=== PATIENT | male | born 1950 | race Caucasian/White ===

== ENCOUNTER 2018-08-31 10:01 | Observation (INO) | payer MEDICARE, OTHER ==
[~2018-08-31] VITALS: Ht 190.5 cm; Wt 102.8 kg
[~2018-08-31 10:01] MED LIST: ALPR.5 PO; AMAN100; AMOCLA875 PO; Azor 5-40 MG T1 EACH; Baclofen10 MG PO; CHOL10002 PO; COL-RITE250 MG PO; ENTA200 PO; LEVCAR2510 PO; LEVCAR2525 PO; OLME20 PO; Ropinirole HCl2 MG PO; SILD25T PO; TADA10TA; ZOLP6.25 PO
[2018-08-31 11:01] LABS: Source, Urine Clean Catch
[2018-08-31] MEDS ORDERED: TAMS.4ER PO (11:04)
[2018-08-31] MEDS ORDERED: LISI5 PO (11:05)
[2018-08-31] MEDS ORDERED: ELIQUIS5 MG PO (11:05)
[2018-08-31] MEDS ORDERED: Bisoprolol Fumar5 MG PO (11:05)
[2018-08-31 11:06] LABS: BASOPHILS ABSOLUTE AUTO 0.06 K/mm3 (0.00-0.23); BASOPHILS PERCENT AUTO 1 % (0-2); EOSINOPHILS ABSOLUTE AUTO 0.13 K/mm3 (0.00-0.68); EOSINOPHILS PERCENT AUTO 2 % (0-6); Hematocrit 49.9 % (37.0-53.0); Hemoglobin 16.5 g/dL (13.5-17.5); IMMATURE GRAN ABSOLUTE AUTO 0.04 K/mm3 (0.00-0.10); IMMATURE GRAN PERCENT AUTO 1 % (0-1); LYMPHOCYTES ABSOLUTE AUTO 1.68 K/mm3 (0.84-5.20); LYMPHOCYTES PERCENT AUTO 19 % (21-46); MONOCYTES ABSOLUTE AUTO 0.67 K/mm3 (0.16-1.47); MONOCYTES PERCENT AUTO 8 % (4-13); Mean Corpuscular HGB 30.4 pg (26.0-34.0); Mean Corpuscular HGB Conc 33.1 g/dL (31.5-36.5); Mean Corpuscular Volume 92 fL (80-100); Mean Platelet Volume 9.4 fL (9.1-12.4); NEUTROPHILS ABSOLUTE AUTO 6.09 K/mm3 (1.96-9.15); NEUTROPHILS PERCENT AUTO 70 % (41-73); Platelet Count 270 K/mm3 (150-400); RDW Coefficient Variation 13.1 % (11.7-14.2); RDW Standard Deviation 44.5 fL (35.1-46.3); Red Blood Cell Count 5.42 M/mm3 (4.30-5.90); White Blood Cell Count 8.67 K/mm3 (4.00-11.30)
[2018-08-31 11:08] LABS: Bilirubin, Urine Neg (Neg); Blood, Urine 1+ (Neg); Glucose Qualitative, Urine Neg (Neg); Ketones, Urine Neg (Neg); Leukocyte Esterase, Urine Neg (Neg); Nitrite, Urine Neg (Neg); Protein, Urine Neg (Neg); Specific Gravity, Urine 1.015 (1.003-1.022); Urobilinogen, Urine NORM (Normal)
[2018-08-31 11:22] LABS: Alanine Aminotransfer (ALT/SGP 12 U/L (12-78); Albumin/Globulin Ratio 1.2 (0.8-1.8); Alk Phos 124 U/L (50-136); Anion Gap 9 mmol/L (6-16); Aspartate Aminotrans (AST/SGOT 25 U/L (12-37); Bilirubin, Total 0.8 mg/dL (0.1-1.0); Blood Urea Nitrogen 24 mg/dL (8-24); Bun/Creatinine Ratio 30.5 (12.0-20.0); CO2, Blood 26 mmol/L (21-32); Calcium, Blood 8.8 mg/dL (8.5-10.1); Chloride, Blood 99 mmol/L (98-108); Creatinine, Blood 0.79 mg/dL (0.60-1.20); Globulin, Blood 3.4 g/dL (2.2-4.0); Glomerular Filtration Rate >60 (60-); Glucose, Blood 91 mg/dL (70-99); Sodium, Blood 134 mmol/L (136-145); Total Protein, Blood 7.4 g/dL (6.4-8.2)
[2018-08-31 11:57] LABS: Appearance, Urine Clear (Clear); Bacteria Not Seen /hpf; Color, Urine Yellow (P-Yellow); Red Blood Cells, Urine 0-2 /hpf (0-2); Squamous Epithelial Cells Not Seen /hpf (Few); White Blood Cells, Urine Not Seen /hpf (0-5)
[2018-09-05] MEDS ORDERED: QUET25 PO (10:33)
== END 2018-09-05 14:29 | disposition home or self-care (01) ==
LOC: ER 10:01 → MEDS 10:02 → ENPENDDIS 09-05 10:16 → MEDS 09-05 14:29
PROVIDERS: Emergency Medicine
DX: G20 Parkinson's disease (principal); F31.9 Bipolar disorder, unspecified; Z87.891 Personal history of nicotine dependence; I10 Essential (primary) hypertension; Z85.71 Personal history of Hodgkin lymphoma; Z74.09 Other reduced mobility
CPT/HCPCS: 71046; 80053; 81001; 85025; 92610; 96125; 96360; 96361; 97110; 97112; 97116; 97162; 97166; 97530; 97535; 99285-25; G0378; G0515; G8978; G8979; G8987; G8988; G8996; G8997; G8998; G9168; G9169; G9170; J7120

== ENCOUNTER 2018-10-13 14:52 | Emergency (ER) | payer MEDICARE, OTHER ==
[~2018-10-13] VITALS: Ht 177.8 cm; Wt 95.2 kg
[~2018-10-13 14:52] MED LIST changes: +Bisoprolol Fumar5 MG PO; +ELIQUIS5 MG PO; +LISI5 PO; +QUET25 PO; +TAMS.4ER PO
[2018-11-05] MEDS ORDERED: MELA3 PO (23:17)
[2018-11-05] MEDS ORDERED: ROPI2 PO (23:18)
[2018-11-05] MEDS ORDERED: TRAZ100 PO (23:19)
[2018-11-06] MEDS ORDERED: HALO5 PO (01:31)
== END 2018-10-13 18:46 | disposition home or self-care (01) ==
LOC: ER 14:52
DX: G20 Parkinson's disease (principal); Z79.899 Other long term (current) drug therapy; Z79.01 Long term (current) use of anticoagulants; Z87.891 Personal history of nicotine dependence
CPT/HCPCS: 99284

== ENCOUNTER → 2018-11-05 22:53 | Emergency (ER) | payer MEDICARE, OTHER ==
[~2018-11-05] VITALS: Ht 190.5 cm; Wt 104.3 kg
[~2018-11-05 22:53] MED LIST changes: +HALO5 PO; +MELA3 PO; +ROPI2 PO; +TRAZ100 PO
== END | disposition home or self-care (01) ==
LOC: ER 22:53
DX: R45.1 Restlessness and agitation (principal); G20 Parkinson's disease; F05 Delirium due to known physiological condition; F02.80 Dementia in other diseases classified elsewhere, unspecified severity, without behavioral disturbance, psychotic disturbance, mood disturbance, and anxiety; Z79.899 Other long term (current) drug therapy; Z79.02 Long term (current) use of antithrombotics/antiplatelets; Z87.891 Personal history of nicotine dependence
CPT/HCPCS: 96372; 99284-25; J1200; J1630; J3486

== ENCOUNTER 2018-11-11 04:44 | Observation (INO) | payer MEDICARE, OTHER ==
[~2018-11-11] VITALS: Ht 188 cm; Wt 98.5 kg
[~2018-11-11 04:44] MED LIST changes: -LEVCAR2510 PO; -QUET25 PO; +QUET300 PO; +REQUIP XL6 MG PO; -ROPI2 PO; +SINEMET 25-1001 EACH PO
--- NOTE | 2018-11-12 04:45 | NUR ---
Rn summary: Patient was admitted to room 345 via stretcher from the ED at 2220. Pt was sleepy from the IM haldol received in the ED. After 2 hours pt was starting to talk a little. He has been incontinent of urine several times. Patient will not leave covers on, often takes off attends. Pt is stiff to turn for attends changes. Pt has scabs below magdaleno knees and on shins, skin to knees are red, photos taken. Patient is confused. He has not been combative since admit to room. Bed alarm is on for safety and side rails up x3. Plan is to find a safe appropriate place for patient to discharge. Will continue to monitor closely.
[2018-11-12 14:41] LABS: BASOPHILS ABSOLUTE AUTO 0.05 K/mm3 (0.00-0.23); BASOPHILS PERCENT AUTO 0 % (0-2); EOSINOPHILS ABSOLUTE AUTO 0.11 K/mm3 (0.00-0.68); EOSINOPHILS PERCENT AUTO 1 % (0-6); Hematocrit 52.4 % (37.0-53.0); Hemoglobin 17.5 g/dL (13.5-17.5); IMMATURE GRAN ABSOLUTE AUTO 0.09 K/mm3 (0.00-0.10); IMMATURE GRAN PERCENT AUTO 1 % (0-1); LYMPHOCYTES ABSOLUTE AUTO 1.66 K/mm3 (0.84-5.20); LYMPHOCYTES PERCENT AUTO 13 % (21-46); MONOCYTES ABSOLUTE AUTO 1.04 K/mm3 (0.16-1.47); MONOCYTES PERCENT AUTO 8 % (4-13); Mean Corpuscular HGB 30.6 pg (26.0-34.0); Mean Corpuscular HGB Conc 33.4 g/dL (31.5-36.5); Mean Corpuscular Volume 92 fL (80-100); Mean Platelet Volume 9.5 fL (9.1-12.4); NEUTROPHILS ABSOLUTE AUTO 9.65 K/mm3 (1.96-9.15); NEUTROPHILS PERCENT AUTO 77 % (41-73); Platelet Count 335 K/mm3 (150-400); RDW Coefficient Variation 13.2 % (11.7-14.2); RDW Standard Deviation 44.5 fL (35.1-46.3); Red Blood Cell Count 5.71 M/mm3 (4.30-5.90)
[2018-11-12 14:58] LABS: Alanine Aminotransfer (ALT/SGP 42 U/L (12-78); Albumin, Blood 3.4 g/dL (3.4-5.0); Albumin/Globulin Ratio 0.9 (0.8-1.8); Alk Phos 104 U/L (50-136); Anion Gap 7 mmol/L (6-16); Aspartate Aminotrans (AST/SGOT 34 U/L (12-37); Blood Urea Nitrogen 30 mg/dL (8-24); CO2, Blood 25 mmol/L (21-32); Calcium, Blood 8.9 mg/dL (8.5-10.1); Chloride, Blood 101 mmol/L (98-108); Creatinine, Blood 0.73 mg/dL (0.60-1.20); Globulin, Blood 3.6 g/dL (2.2-4.0); Glomerular Filtration Rate >60 (60-); Glucose, Blood 101 mg/dL (70-99); Potassium, Blood 4.6 mmol/L (3.5-5.5); Sodium, Blood 133 mmol/L (136-145)
--- NOTE | 2018-11-12 16:42 | NUR ---
gave our business card as resource. she is to distrught and ftigued to discuss care at this time.
[2018-11-12 18:32] LABS: Appearance, Urine Clear (Clear); Blood, Urine 2+ (Neg); Color, Urine Amber (P-Yellow); Glucose Qualitative, Urine Neg (Neg); Ketones, Urine 1+ (Neg); Leukocyte Esterase, Urine Neg (Neg); Nitrite, Urine Neg (Neg); Protein, Urine 2+ (Neg); Urobilinogen, Urine 1+ (Normal)
[2018-11-12 18:39] LABS: Bilirubin, Urine 1+ (Neg)
[2018-11-12 18:41] LABS: White Blood Cells, Urine 0-2 /hpf (0-5)
[2018-11-12 18:42] LABS: Bacteria Rare /hpf; Mucus Heavy (0-Heavy); Squamous Epithelial Cells Few /hpf (Few)
--- NOTE | 2018-11-12 19:32 | NUR ---
PT MEDICATIONS FAXED FROM [facility] IN CHART, DR INFORMED...MEDICATIONS ADJUSTED. DRENCHER CALLED TODAY WHEN PT WAS ON COMMODE, ATTEMPTED TO HAVE A BOWEL MOVEMENT AND SOON BECAME UNRESPONSIVE, DIAPHORETIC, AND PALE. DRENCHER CAME TRANSFERED HIM TO THE BED, GAVE OXYGEN AND PT SOON BECAME RESPONSIVE AGAIN. BP HAD DROPPED WHEN UP ON COMMODE, VAGAL RESPONSE, AND INCREASED TO BASELINE AFTER BEING TRANSFERED BACK TO THE BED. ORDERED URINE SAMPLE, CONDOM CATH PLACED, SAMPLE SENT. PT IS TALKING MORE AND MORE AT BASELINE LATER TODAY. PT TAKES MEDS WHOLE W/ WATER. AND SON AT BEDSIDE. PLAN IS POSSIBLY [facility] FOR PLACEMENT, WILL NO FOR SURE ON MODAY. ATTENDS IN PLACE FOR INCONTINENCE.
--- NOTE | 2018-11-13 05:38 | NUR ---
SHIFT SUMMARY PT IS A 68 Y/O MALE, ADMITTED FOR PARKINSON'S DISEASE. HE IS A&O X SELF ONLY, AND WAS NONVERBAL FOR MOST OF THE SHIFT, THOUGH TWICE HE DID RESPOND WITH ONE TO TWO WORDS. THE PT WAS VERY FIDGETY, PULLING AT BLANKETS AND AT THE BED RAILS. HE ALSO GRABBED AT STAFF WHEN THEY WERE WITHIN REACH. THE PT HAD Q2H PARCOPA, AND WOULD NOT TAKE THE PO PILLS. PER THE PHARMACIST, THIS MEDICATION IS ABLE TO BE CRUSHED, AND THE PT HAD AN EASIER TIME TAKING THE PILL IN THE APPLESAUCE, THOUGH HE STILL REFUSED ONCE DURING THE NIGHT. PT'S HEART RATE WAS LOW DURING THE NIGHT IN THE 40S, ALL OTHER VITALS REMAINED STABLE. PT APPEARED COMFORTABLE WITH NO S/S OF PAIN OR DISCOMFORT. NO OTHER ACUTE CHANGES IN PT CONDITION DURING THE NIGHT. WILL CONTINUE TO MONITOR AND TREAT.
--- NOTE | 2018-11-13 15:19 | NUR ---
PT MORE ALERT AND ORIENTED TODAY...STILL CONFUSED AND NONSENSICAL AT TIMES BUT MORE VERBAL. POSSIBLE DISCHARGE TO [facility] PENDING VERIFICATION WEDNESDAY. PULSE HAS BEEN RUNNING LOW, STATES THIS IS HIS NORMAL AND THAT HIS DR SAYS ITS IS OKAY UNLESS IT IS UNDER 30 BPM. ALL OTHER VITALS WNL. METOPROLOL HELD DUE TO LOW PULSE. AT BEDSIDE THROUGHOUT DAY AND ASISST WITH FEEDING AND CARE WHEN ABLE. PT UP IN CHAIR FOR BREAKFAST. PT VERY UNSTEADY, NO USE OF LEGS WHEN TRANSFERED. MAX ASSIST PIVOT TO CHAIR. WILL CTM.
--- NOTE | 2018-11-14 00:09 | NUR ---
AGITATION THE PT IS MORE AWARE THIS EVENING COMPARED TO THE PREVIOUS NIGHT. HE IS STILL CONFUSED AND AGITATED, THOUGH NOT COMBATIVE WITH STAFF AT THIS POINT, AND IS YELLING OUT FROM HIS ROOM. THE HOSPITALIST CARRINGTON CHAUDHRY WAS CONSULTED, AND A ONE TIME DOSE OF TRAZODONE WAS ORDERED.
[2018-11-14 05:32] LABS: BASOPHILS ABSOLUTE AUTO 0.06 K/mm3 (0.00-0.23); BASOPHILS PERCENT AUTO 1 % (0-2); EOSINOPHILS ABSOLUTE AUTO 0.25 K/mm3 (0.00-0.68); EOSINOPHILS PERCENT AUTO 2 % (0-6); Hematocrit 53.2 % (37.0-53.0); Hemoglobin 17.1 g/dL (13.5-17.5); IMMATURE GRAN ABSOLUTE AUTO 0.06 K/mm3 (0.00-0.10); IMMATURE GRAN PERCENT AUTO 1 % (0-1); LYMPHOCYTES ABSOLUTE AUTO 2.14 K/mm3 (0.84-5.20); LYMPHOCYTES PERCENT AUTO 20 % (21-46); MONOCYTES ABSOLUTE AUTO 0.84 K/mm3 (0.16-1.47); MONOCYTES PERCENT AUTO 8 % (4-13); Mean Corpuscular HGB 30.5 pg (26.0-34.0); Mean Corpuscular HGB Conc 32.1 g/dL (31.5-36.5); Mean Platelet Volume 9.8 fL (9.1-12.4); NEUTROPHILS ABSOLUTE AUTO 7.28 K/mm3 (1.96-9.15); NEUTROPHILS PERCENT AUTO 68 % (41-73); Platelet Count 290 K/mm3 (150-400); RDW Coefficient Variation 13.1 % (11.7-14.2); RDW Standard Deviation 46.5 fL (35.1-46.3); White Blood Cell Count 10.63 K/mm3 (4.00-11.30)
[2018-11-14 05:35] LABS: Mean Corpuscular Volume 95 fL (80-100)
[2018-11-14 05:47] LABS: Albumin, Blood 3.4 g/dL (3.4-5.0); Anion Gap 8 mmol/L (6-16); Blood Urea Nitrogen 27 mg/dL (8-24); CO2, Blood 25 mmol/L (21-32); Calcium, Blood 8.9 mg/dL (8.5-10.1); Chloride, Blood 104 mmol/L (98-108); Creatinine, Blood 0.66 mg/dL (0.60-1.20); Glomerular Filtration Rate >60 (60-); Glucose, Blood 87 mg/dL (70-99); Phosphorus, Blood 2.9 mg/dL (2.5-4.9); Potassium, Blood 4.1 mmol/L (3.5-5.5); Sodium, Blood 137 mmol/L (136-145)
--- NOTE | 2018-11-14 05:55 | NUR ---
SHIFT SUMMARY PT IS A 68 Y/O MALE, ADMITTED FOR PARKINSONS DISEASE. HE IS A&O X SELF, THOUGH IN THE EVENING HE DID KNOW THAT HE WAS IN [facility] FOR A SHORT TIME. HE WAS MUCH MORE VERBAL AND INTERACTIVE COMPARED TO THE PREVIOUS NIGHT. THE PT HAD INTERMITTENT INCREASED CONFUSION AND AGITATION (SEE PREVIOUS NOTE), AND TENDED TO GRAB AT NEARBY STAFF, BUT WAS NOT COMBATIVE. THE PT DID NOT SLEEP WELL DURING THE NIGHT. PT'S BP WAS ELEVATED, IN THE 150-160S SYSTOLICALLY. ALL OTHER VITALS STABLE. PT APPEARED COMFORTABLE WITH NO S/S OF DISTRESS OR PAIN. NO OTHER ACUTE CHANGES IN PT CONDITION NOTED. WILL CONTINUE TO MONITOR AND TREAT PER EMAR.
--- NOTE | 2018-11-14 07:56 | NUR ---
C/O HEADACHE. GIVEN HTN MEDS EARLY FOR HTN.
--- NOTE | 2018-11-14 10:39 | NUR ---
NOTIFIED THAT PER LEAD COOK RN PATIENT HAS PULLED OUT IV MULTIPLE TIMES. NO IV ASSESS NEEDED OK.
--- NOTE | 2018-11-14 14:09 | NUR ---
CALLED TO VERIFY HE WILL BE SEEING PATIENT TODAY. HAS INFO.
--- NOTE | 2018-11-14 17:52 | NUR ---
PATIENT ALERT TO SELF AND FAMILY. DIFFICULT TO UNDERSTAND AT TIMES WHAT PATIENT IS SAYING. PARKINSONS. DOES NOT KNOW WHEN HE HAS URINATED. DOES NOT PUT FEET ON GROUND WHEN TRYING TO STAND PATIENT. IS A MECHANICAL LIFT. UNLABORED RESPIRATIONS. BED IN LOW POSITION. WILL CONTINUE TO MONITOR.
--- NOTE | 2018-11-14 18:36 | NUR ---
PER DO NOT WAKE PATIENT FOR MEDS IF SLEEPING. WILL LET NIGHT RN KNOW.
--- NOTE | 2018-11-14 22:24 | NUR ---
1957 PT LYING IN BED. PT REPORTS A LITTLE NAUSEA BUT DOES NOT WANT ANYTHING FOR IT AT THIS TIME. NO OTHER APPARENT SIGNS OF DISTRESS. CALL LIGHT IS IN REACH. BED ALARM IS ON.
--- NOTE | 2018-11-14 23:54 | NUR ---
ASSISTED REPORTS DEVELOPER IN CHANGING AND TURNING PT. PT TOLERATED WELL, DENIES NEED FOR ANYTHING AT THIS TIME. NO APPARENT SIGNS OF DISTRESS. CALL LIGHT IS IN REACH. BED ALARM IS ON.
--- NOTE | 2018-11-15 01:51 | NUR ---
GAVE PT HIS 0200 MEDICATION, WILL CHANGE AND TURN PT WHEN PATIENT FINANCIAL SERVICES SPECIALIST IS BACK FROM HER LUNCH. NO APPARENT SIGNS OF DISTRESS. CALL LIGHT IS IN REACH. BED ALARM IS ON.
--- NOTE | 2018-11-15 01:53 | NUR ---
11/14/18 2200 PT LYING IN BED, AWAKE, WATCHING TV. NO APPARENT SIGNS OF DISTRESS. CALL LIGHT IS IN REACH. BED ALARM IS ON.
--- NOTE | 2018-11-15 04:31 | NUR ---
PT LYING IN BED, EYES CLOSED, APPEARS TO BE RESTING. BREATHING IS EVEN, UNLABORED. NO APPARENT SIGNS OF DISTRESS. CALL LIGHT IS IN REACH.
--- NOTE | 2018-11-15 04:31 | NUR ---
PT IS SOMEWHAT ALERT BUT A LITTLE SLEEPY TOO. HE IS ORIENTED TO SELF AND , SOMEWHAT TO WHERE HE IS AND SOMEWHAT TO HIS CURRENT SITUATION. ON RA, NO IV-OK TO LEAVE OUT. HX OF PARKINSONS DEMENTIA, IS MOSTLY PLEASANT AND COOPERATIVE BUT AT TIMES WILL GRAB YOUR ARM TO STOP WHAT YOU ARE DOING, HOWEVER IF YOU REPEAT THE EXPLANATION OF WHAT YOU ARE DOING AND ASK HIM TO LET GO HE USUALLY DOES. HE IS A LIFT OR A 2 PERSON MAX ASSIST.
--- NOTE | 2018-11-15 05:53 | NUR ---
ASSISTED J2EE CONSULTANT IN CHANGING AND REPOSITIONING THE PT. PT TOLERATED WELL. PT REPORTS HEADACHE, WILL GET AHOLD OF THE DR TO GET SOMETHING FOR IT. NO OTHER APPARENT SIGNS OF DISTRESS. CALL LIGHT IS IN REACH. BED ALARM IS ON. NO OTHER CHANGES THIS SHIFT.
--- NOTE | 2018-11-15 17:33 | NUR ---
CALLED ABOUT [facility]OD[facility] DOSE. STS WANTS EVERY 2.5-3 HOURS DAYS AND EVERY 4 HOURS AT NIGHT. NIGHT DOSES DID NOT COME ACROSS ON EMAR. WILL ORDER.
--- NOTE | 2018-11-16 02:13 | NUR ---
RIPPED OFF DEPENDS AND SOAKED BEDDING, CHANGED AND CLEANED UP, 200 ML IN URINAL, APPEARS TO BE HAVING TROUBLE DIFFERENTIAATING BETWEEN DREAM AND REALITY
--- NOTE | 2018-11-16 17:42 | NUR ---
PT ALERT ORIENTED TO SELF AND FAMILY, PT IS OTHERWISE CONFUSED, AT TIMES THE PT TRIES CLIMB OUT OF THE BED AND BECOMES AGITATED TOWARD HIS , THE PTS HAS BEEN AT THE BEDSIDE T/O THE DAY AND HELPS WITH HIS CARE AND REORIENTATION, THE PT IS A 2 PERSON STAND AND PIVOT UP INTO THE CHAIR, THE PT DENIED ANY PAIN T/O THE DAY, BED ALARM ON, CALL LIGHT WITHIN REACH
--- NOTE | 2018-11-17 05:04 | NUR ---
SHIFT SUMMARY PT RESTING QUIETLY IN BED, AWAKE DURING SHIFT REPORT. VERY CONFUSED AND DISORIENTED. DOES NOT FOLLOW INSTRUCTIONS WELL. BECOMES VERY AGITATED AT TIMES WHEN ATTEMPTING TO GET HIM TO COMPLY WITH NEEDED CARE. ADMITTED FOR PARKINSONS AND ADVANCED DEMENTIA. USED URINAL HIMSELF A COUPLE OF TIMES, WAS INCONTINENT A COUPLE OF TIMES TRYING TO USE THE URINAL. PT WANTED TO STAND AT BS TO USE URINAL DURING THE NIGHT, BUT ALSO BECAME COMBATIVE WHEN TRYING TO ASSIST HIM. MEDS ADMINISTERED CRUSHED IN [facility]. PT SLEPT SOME DURING THE NIGHT, BUT WAS ALSO RESTLESS AND YELLED OUT IN HIS SLEEP. HR AT 33 FOR HS VS. PAYAL FENCE POST DRIVER NOTIFIED THAT LISINOPRIL WAS HELD. CALLED TO CHECK ON PT EARLY INTO SHIFT. UPDATE GIVEN. PER SHIFT REPORT, PT WAITING FOR PLACEMENT AT THIS TIME. CALL LT IN REACH. BED ALARM ON FOR SAFETY.
--- NOTE | 2018-11-17 14:32 | NUR ---
VISITING PT TO GIVE RESPITE. PT AGGITATED WHEN LEFT. TURNED OFF NEWS AND HAD CONVERSATION WITH PATINT ABOUT THE SNOW AND HOW THE COMMUNITY IS DOING AND ASKED HIM A FEW SIMPLE QUESTIONS TO NORMALIZE CONVERSATION. PT ATTEMPTED ANSWERS. EXPRESSED GRIEF ABOUT LOSS OF FUNTION. BREIF SYMPTOM REVIEW HE ONLY RESPONDED TO ADMITTIN HIS HEADACHES ARE WORSE. PT DRIFTED OFF TO SLEEP DURING CONVERSATION. PT STARTLES. DECREASED LIGHT AND NOISE.
--- NOTE | 2018-11-17 14:46 | NUR ---
WHEN RETURNS WILL ATTEMPT CONVERSATION ON HER STRESS AND PLAN FOR THE FUTURE. WILL AGAIN ATTEMTP POLST AND ADVANCE CARE PLAN
--- NOTE | 2018-11-17 14:55 | NUR ---
PT RESTLESS COMPLAINS OF SHOULDER ACHING IN THE JOINT. PT PULSE TAKEN FOR ONE MINUTE PULSE 84 ON RIGHT RADIAL. MEDICATED WITH TYLENOL
--- NOTE | 2018-11-17 15:20 | NUR ---
review of patients symptoms and interaction with phsycial therapy.
--- NOTE | 2018-11-17 17:33 | NUR ---
PT A/OX2, COOPERATIVE, FORGETFULL AND CONFUSED AT TIMES, THE PT IS UP WITH A 2 PERSON STAND AND PIVOT TO THE CHAIR, THE PT APPEARED TO BE BREATHING EASILY T/O THE DAY ON RA. THE PT WAS GIVEN TYLENOL X1 FOR SHOULDER PAIN, PT WAS UP INTO THE CHAIR T/O THE DAY, HAD SHORT NAPS T/O THE DAY, THE PT WAS UP IN THE ROOM WITH PHYSICAL THERAPY TODAY, BED ALRM AND CHAIR ALARM USED, THE PTS WAS AT THE BEDSIDE FOR MOST OF THE DAY
--- NOTE | 2018-11-18 04:34 | NUR ---
*SHIFT SUMMARY* PATIENT IS ALERT AND ORIENTED TO SELF AND . ON ROOM AIR AND IN BED. PATIENT IS A HEAVY 2 ASSIST TO THE BATHROOM. PATIENT HAS A HARD TIME MOVING HIS LEGS DIRECTED WITH TRANSFERING. PATIENT DID NOT SLEEP MUCH THROUGHOUT THE NIGHT. HE OFTEN YELLED OUT FOR HELP STATING HE WAS DYING. WHEN STAFF ENTERED THE ROOM HE WOULD ASK IF WE COULD JUST SIT WITH HIM. PATIENT WOULD TRY AND GET OUT OF BED FREQUENTLY AND TOSSED EVERYTHING WITHIN REACH, INCLUDING K-PAD PUMP AT BEDSIDE, WATER, BLANKETS AND PILLOWS. PATIENT TOOK HIS GLASSES FROM BEDSIDE TABLE AND BROKE THEM, BENT THE FRAMES AND POPPED OUT THE LENSES. HOSPITALIST WAS NOTIFIED AND ANNE-AMRIE VEST WAS ORDERED FOR PATIENT'S SAFETY. PATIENT IS VERY CONFUSED AND A HIGH FALL RISK. PATIENT WAS INCONTINENT TWICE THROUGHOUT THE NIGHT WETTING THROUGH THE BRIEF ONTO THE BED AND OPENING HIS BRIEF AND PEEING INTO THE AIR/FLOOR. CALL LIGHT IN REACH AND PATIENT USES AT TIMES. BED IS LOWERED AND LOCKED WITH ALARM ON. PRN MEDICATIONS WERE ADMINISTERED TO HELP PATIENT RELAX, THERE WAS NO RELIEF.
--- NOTE | 2018-11-18 18:18 | NUR ---
SHIFT SUMMARY PATIENT HAS BEEN AGITATED TODAY, HAS CONFIRMED THIS. HE HAS A STANDING RESTRAINTS ORDER FOR A ANNE-MARIE UNTIL 0154 THIS EVENING. WILL ASSESS FOR CHANGES. PATIENT HAS NOT GOTTEN OUT OF BED, HE IS A 2 PERSON MAX ASSIST TO STAND RELATED TO HIS PARKINSONS. FOR THE PATIENT CONDITION, HE IS ABLE TO ROLL IN THE BED AND HE IS A 1PA CHANGE IN THE BED. HE HAS HAD LARGE BOWEL MOVEMENTS TODAY, MULTIPLE.
--- NOTE | 2018-11-19 04:13 | NUR ---
SHIFT SUMMARY PT HAD FREQUENT BM'S DURING SHIFT. PT REMAINS IN ANNE-MARIE VEST DUE TO TRYING TO GET OUT OF BED AND BEING UNSTEADY. PT IS CONFUSED AND IS INCOHERENT. PT DOES CURSE AND SWAT AT TIMES DURING CHANGING. PT SLEPT OFF AND ON AND YELLED OUT AT TIMES. PT HAD NO ACUTE ISSUES NOTED. PT IS CURRENTLY AWAKE AND BREATHING EASY. CALL LIGHT IN REACH.
--- NOTE | 2018-11-19 17:14 | NUR ---
Patient seen this morning romulo rios. pt angry today and pushing at then wants her at bedside. appears more laocked in and frustrated. pt may benefit from getting out of room. will review medications with physician to see if anexiety medication needs to be added or parkinsons meds adjusted. pt not relaying or dispalying pain . yesteday his shoulder was hurting.
--- NOTE | 2018-11-19 18:40 | NUR ---
SHIFT SUMMARY: NO ACUTE CHANGES TO REPORT THIS SHIFT. PT ALERT; CONFUSED; ORIENTED TO SELF AND SPOUSE; HIGH FALL RISK; AGITATED; ANNE-MARIE VEST REMAINS IN PLACE FOR SAFETY. PT UP TO CHAIR WITH LIFT R/T WEAKNESS & HIGH FALL RISK. AWAITING PLACEMENT. WCTM.
--- NOTE | 2018-11-20 04:12 | NUR ---
SHIFT SUMMARY PT HAS SLEPT FOR LARGE PORTION OF SHIFT. PT HAD FEWER EPISODES OF YELLING OUT IN THE NIGHT. PT IS STILL CONFUSED BUT IS ABLE TO FOLLOW DIRECTIONS GIVEN TIME. PT HAD NO ACUTE ISSUES NOTED. PT CURRENTLY SLEEPING AND BREATHING EASY. CALL LIGHT IN REACH.
--- NOTE | 2018-11-20 19:16 | NUR ---
SHIFT SUMMARY PARKINSON'S AND DEMENTIA; VEST RESTRAINT IN PLACE. USING URINAL WELL INCONTINENT OF BOWEL; ATTENDS IN PLACE. EATING AND DRINKING WELL WITH ASSISTANCE. SPOUSE IN ROOM AND VERY ATTENTIVE THROUGHOUT SHIFT. CONFUSED. RIGID MOVEMENTS. LIFT PATIENT. UP IN CHAIR FOR SEVERAL HOURS TODAY.
--- NOTE | 2018-11-20 22:41 | NUR ---
PT IS AGITATED ANDTRYING TO GET OUT OF BED. PT GRABBING AT PERSONNEL. PT REDIRECTED AND IS BACK TO LAYING IN BED.
--- NOTE | 2018-11-21 01:58 | NUR ---
PT CONTINUED TO BE AGITATED AND TRYING TO GET OUT OF BED. PT TX PER EMAR. PT IS SLEEPING NOW.
--- NOTE | 2018-11-21 03:59 | NUR ---
RESTRAINT ORDER RENEWED 11/20/18 @ 1842 HRS. DAY RN DID NOT ENTER RENEWAL. DR. BRASHER RENEWED ORDER.
--- NOTE | 2018-11-21 04:11 | NUR ---
SHIFT SUMMARY PT HAS BEEN HAVING PERIODS OF AGITATION AND FRUSTRATION. PT HAD TRIED TO GET OUT OF BED EARLY IN SHIFT. PT SLEPT POORLY THIS SHIFT. PT HAD PERIODS OF YELLING OUT DURING SHIFT. PT REMAINS CONFUSED AND IS DIFFICULT TO UNDERSTAND AT TIMES. PT HAD NO ACUTE ISSUES AND IS STILL RESTRAINED VIA ANNE-MARIE VEST. PT UNSTEADY AND FORGETS LIMITATIONS. PT CURRENTLY AWAKE AND QUIET. CALL LIGHT IN REACH
[2018-11-21 09:15] LABS: BASOPHILS ABSOLUTE AUTO 0.03 K/mm3 (0.00-0.23); BASOPHILS PERCENT AUTO 0 % (0-2); EOSINOPHILS ABSOLUTE AUTO 0.08 K/mm3 (0.00-0.68); EOSINOPHILS PERCENT AUTO 1 % (0-6); Hematocrit 50.2 % (37.0-53.0); Hemoglobin 16.9 g/dL (13.5-17.5); IMMATURE GRAN ABSOLUTE AUTO 0.07 K/mm3 (0.00-0.10); IMMATURE GRAN PERCENT AUTO 1 % (0-1); LYMPHOCYTES ABSOLUTE AUTO 1.38 K/mm3 (0.84-5.20); LYMPHOCYTES PERCENT AUTO 16 % (21-46); MONOCYTES ABSOLUTE AUTO 0.55 K/mm3 (0.16-1.47); MONOCYTES PERCENT AUTO 7 % (4-13); Mean Corpuscular HGB 30.5 pg (26.0-34.0); Mean Corpuscular HGB Conc 33.7 g/dL (31.5-36.5); Mean Platelet Volume 9.9 fL (9.1-12.4); NEUTROPHILS ABSOLUTE AUTO 6.41 K/mm3 (1.96-9.15); NEUTROPHILS PERCENT AUTO 75 % (41-73); Platelet Count 323 K/mm3 (150-400); RDW Standard Deviation 43.6 fL (35.1-46.3); Red Blood Cell Count 5.54 M/mm3 (4.30-5.90); White Blood Cell Count 8.52 K/mm3 (4.00-11.30)
[2018-11-21 09:17] LABS: Mean Corpuscular Volume 91 fL (80-100)
[2018-11-21 09:26] LABS: Albumin, Blood 3.3 g/dL (3.4-5.0); Anion Gap 7 mmol/L (6-16); Blood Urea Nitrogen 23 mg/dL (8-24); Bun/Creatinine Ratio 39.6 (12.0-20.0); CO2, Blood 25 mmol/L (21-32); Calcium, Blood 8.6 mg/dL (8.5-10.1); Chloride, Blood 102 mmol/L (98-108); Creatinine, Blood 0.58 mg/dL (0.60-1.20); Glomerular Filtration Rate >60 (60-); Glucose, Blood 106 mg/dL (70-99); Magnesium, Blood 1.9 mg/dL (1.6-2.4); Phosphorus, Blood 2.5 mg/dL (2.5-4.9); Sodium, Blood 134 mmol/L (136-145)
--- NOTE | 2018-11-21 19:10 | NUR ---
SHIFT SUMMARY PT CHATTY THIS MORNING AND KNEW WHERE HE WAS AND WHY BUT DIDN'T KNOW THE YEAR. WAS REQUESTING TO USE MY CELL PHONE TO MAKE SEVERAL PHONE CALLS AND WHEN HE WAS TOLD HE WOULD NEED TO WAIT TIL HIS ARRIVED HE BECAME UPSET AND SAID I'M STARTING TO GET MAD AT YOU. DID APPEAR THREATENING TO AT LUNCHTIME BUT WHEN ASKED IF SHE FELT HE NEEDED SEROQUEL SHE SAID HE SEEMED TO BE IMPROVING AND TO HOLD OFF. WENT OUT FOR A RIDE IN W/C WITH AND THEN ASSISTED BACK TO BED WITH 2 PERSON MAX ASSIST. SAT ON SIDE OF BED WHILE IN ROOM TO EAT SUPPER.
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
--- NOTE | 2018-11-22 17:39 | NUR ---
SHIFT SUMMARY PT HAS HAD NO ACUTE CAHNGES THIS SHIFT, MEDICATED PER NOV FRO AGITATION, 2 MAX ASSIST TO CHAIR FOR SEVERAL HOURS FOR LUNCH. SPOUSE HAS BEEN AT BEDSIDE T/O SHIFT, PT BEDRESTING AT THIS TIME W/ AT BEDSIDE, UNABLE TO REMOVE ANNE-MARIE AT THIS TIME PT CONTINUES TO BE UNCOOPERATIVE W/CARE AND DOES NOT FOLLOW DIRECTION. WILL CONT TO MONITOR UNTIL REPORT GIVEN TO CLIFFORD RN.
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
--- NOTE | 2018-11-23 17:49 | NUR ---
SHIFT SUMMARY REMOVED PT FROM 4 POINT RESTRAINTS THIS SHIFT, PT HAS SLEPT ON AND OFF T/O SHIFT, HAS BEEN MORE COOPERATIVE WITH CARE. HAS BEEN AT BEDSIDE T/O SHIFT, PT UP TO RECLINER EATING DINNER AT THIS TIME, WILL CONT TO MONITOR UNTIL REPORT GIVEN TO NOC RN.
--- NOTE | 2018-11-24 05:03 | NUR ---
VSS, AFEBRILE, A/O TO SELF AND FAMILY, CONFUSED, CALMER OVER NOC, RESTLESS IN BED BUT NO ATTEMPTS TO CLIMB OUT OR TO BE COMBATIVE W/STAFF. VEST RESTRAINT IS ADEQUATE FOR CONTROLING IMPULSIVE BEHAVIOR. PT IS COOPERATIVE WITH MEDICATION DURING THIS SHIFT. NO CALLING OUT OR SCREAMING. WORD SALAD MOST OF THE TIME, BUT FREQ ATTEMPTS TO ARGUE SUCCESSFULLY W/STAFF FOR FREEDOM FROM THE VEST RESTRAINT. INCONT, 2 PA TO BSC, SUCCESSFUL TX W/ SIT TO STAND MECH LIFT.
--- NOTE | 2018-11-24 17:34 | NUR ---
CALLED DR. GOODEN TWICE TO REPORT PT'S BP OF 91/59. DID NOT GET A HOLD OF DR. GOODEN LEFT HER TWO VOICEMAILS. PT IS ASYMPTOMATIC AND HAS HAD A FEW LOW B/P IN THE 90'S SYSTOLIC DURING HIS STAY ON OTHER DAYS. WILL CONTINUE TO MONITOR AND PASS ALONG INFO TO SENIOR PHYSICIAN RN.
--- NOTE | 2018-11-24 17:39 | NUR ---
NOTIFIED DR. GOODEN OF PT'S BP OF 91/59. NO NEW ORDERS AT THIS TIME. NOTIFIED DR. GOODEN PT'S IS REQUESTING HIS SEROQUEL BE GIVEN EARLIER SO HE IS LESS DROWSY IN THE AM. DR. GOODEN SAID OK TO GIVE SEROQUEL AT 1999 INSTEAD OF 2099. NO OTHER NEW ORDERS AT THIS TIME.
--- NOTE | 2018-11-24 17:43 | NUR ---
SHIFT SUMMARY- PT AXO TO SELF AND SPOUSE. PT DENIES PAIN. PT CONFUSED AND TRYING TO GET OUT OF BED. PT HAS NOT BEEN COMBATIVE THIS SHIFT BUT IS DIFFICULT TO REDIRECT. PT DOES BETTER WHEN HIS IS AT BEDSIDE. PT'S AT BEDSIDE MOST OF SHIFT. TURNS Q2H. RESP E/U ON RA. PLAN IS TO D/C TO [facility] WEDNESDAY. NO OTHER SIGNIFICANT CHANGES THIS SHIFT.
--- NOTE | 2018-11-25 05:00 | NUR ---
VSS, AFEBRILE, A/O TO SELF AND FAMILY, MUMBLES WORDS THAT ARE OFTEN NOT UNDERSTANDABLE, MORE RESTLESS OVERNOC, CALLING OUT VOWEL SOUNDS AT RANDOM MOMENTS W/OUT ANY REAL ATTEMPT TO COMMUNICATE. ONCE ATTEMPTED TO WIGGLE OUT OF THE ANNE-MARIE VEST BUT THE CAMERA WAS ABLE TO CONTACT STAFF IN TIME TO PREVENT IT. SLEPT SOUNDLY IN BETWEEN EPISODES OF DISRUPTIVE BEHAVIOR, TAKES MEDS WILLINGLY. NO COMPLAINTS.
--- NOTE | 2018-11-25 16:02 | NUR ---
NOTIFIED DR. SORIANO OF PT'S BP OF 74/[address] SORIANO SAID TO RECHECK IN 30 MINS AND IF BP REMAINS LOW TO PLACE IV AND GIVE 1L BOLUS OF FLUIDS. PT'S BP 86/[address] SORIANO PT'S BP WAS 88/57 LAST NIGHT AND CAME UP TO 146/[address] SORIANO SAID LONG PT IS NOT LETHARGIC/DROWSY OR SYMPTOMATIC JUST CONTINUE TO MONITOR PT. NO NEW ORDERS AT THIS TIME.
--- NOTE | 2018-11-25 19:13 | NUR ---
SHIFT SUMMARY- PT MORE ALERT TODAY. REMOVED ANNE-MARIE THIS AM. PT HAS BEEN COOPERATIVE IN CARE THIS SHIFT. PT HAS NOT TRIED TO GET OUT OF BED THIS SHIFT. PT'S IN WITH PT MOST OF THE SHIFT. PT'S SON IN TO VISIT THIS PM. PT'S BP LOW THIS AFTERNOON. SEE PREVIOUS NOTES. TURNS Q2H. NO OTHER SIGNIFICANT CHANGES THIS SHIFT.
--- NOTE | 2018-11-26 04:37 | NUR ---
VSS, AFEBRILE, A/O TO SELF AND FAMILY. PT'S SON WAS HERE IN THE EARLY PART OF THE SHIFT. THIS APPEARS TO HAVE HAD A VERY POSITIVE EFFECT ON HIM AND HIS ATTITUDE ABOUT BEING COOPERATIVE W/CARE GIVERS. PT ATTEMPTED TO GET OUT OF BED A FEW TIMES, BUT WAS EASILY REDIRECTED. HIS WORDS ARE SOMETIMES UNINTELLIGIBLE, AND OTHER TIMES IT IS EASY TO UNDERSTAND WHAT HE IS SAYING. PT SLET MORE DEEPLY AFTER 0300. NO COMPLAINTS.
--- NOTE | 2018-11-26 18:23 | NUR ---
SHIFT SUMMARY PT AXO TO SELF, COOPERATIVE WITH SOME CARE. SUSPICIOUS OF NURSE AT TIMES. UP TO RECLINER X2 WITH LIFT. NO ACUTE CHANGES THIS SHIFT. VSS. NO IV IN PLACE. BED IN LOW POSITION, CALL LIGHT WITHIN REACH. BED ALARM/ CHAIR ALARM ON.
--- NOTE | 2018-11-26 22:04 | NUR ---
PT REFUSING TO TAKE PM MEDICATION STATING HE ALREADY TOOK ALL OF HIS MEDICATION AND WILL NOT TAKE ANYMORE UNTIL THE MORNING. SECOND ATTEMPT MADE TO GIVE PT MEDICATION AND PT CONTINUES TO REFUSE TO TAKE HIS MEDICATIONS. WILL MAKE ANOTHER ATTEMPT AND SEE IF PT WILL BE MORE COOPERATIVE.
--- NOTE | 2018-11-27 04:58 | NUR ---
SHIFT SUMMARY PT HAS NOT SLEPT AT ALL DURING THE NIGHT. DOES NOT USE CALL LIGHT, BUT HOLLERS OUT HELP. HAS BEEN ON BEDPAN SEVERAL TIMES. PT HAS BEEN AGREEABLE TO TAKING HIS PARKINSON'S MEDICATION, BUT NOTHING ELSE. NO ACUTE EVENTS OVER THE NIGHT. WILL CONTINUE TO MONITOR.
--- NOTE | 2018-11-27 10:48 | NUR ---
ORDER FOR RESTRAINTED ENTERED IN ERROR ON WRONG PATIENT. PT NOT IN RESTRAINTS.
--- NOTE | 2018-11-27 16:28 | NUR ---
NOTIFIED DR BRASHER OF HYPOTENSION THIS AFTERNOON, NEW ORDERS TO HOLD 2100 LOPRESSOR AND LISINIPRIL. WILL CONTINUE TO MONITOR.
--- NOTE | 2018-11-27 17:45 | NUR ---
SHIFT SUMMARY PT A&O TO PERSON AND PLACE. PT CALLS OUT FOR ASSISTANCE, DOSE NOT USE CALL LIGHT. SPOUSE AT BEDSIDE DURING SHIFT. PT DENIES PAIN, SOB, LIGHTHEADED/DIZZINESS AND N/V DURING SHIFT. PT LEFT FROM BED TO CHAIR, ATTEMPTS TO BSC 3 PERSON MAX ASSIST, EDUCATED PT FAMILY ON SAFE PATIENT TRANSFER, SPOUSE AGREED TO CONINUE WITH LIFT AND BED RODRIGUEZ. PT HYPOTENSIVE, NOTIFIED DR BRASHER, NEW ORDERS TO HOLD EVENING DOSE OF LOPRESSOR AND CONTINUE TO MONITOR. OTHER VSS. NO OTHER ACUTE CHANGES NOTED DURING SHIFT. WILL CONTINUE TO MONITOR UNTIL REPORT GIVEN TO ONCOMING RN.
--- NOTE | 2018-11-28 04:55 | NUR ---
SHIFT SUMMARY PT HAS SLEPT WELL T/O NIGHT, HOLLERS OUT IN SLEEP. NO ACUTE EVENTS OVER NIGHT, WILL CONTINUE TO MONITOR.
--- NOTE | 2018-11-28 18:07 | NUR ---
SHIFT SUMMARY PT A&O TO PERSON AND PLACE. CALM AND COOPERATIVE WITH CARE. PT SPOUSE AT BEDSIDE T/O SHIFT. PTLIFT TO CHAIR, UP IN CHAIR OR SIDE OF BED FOR MEALS. PT DENIES PAIN, SOB AND N/V DURING SHIFT. NO S/SX OF DISTRESS NOTED. TREMOR PRESENT, MEDICATED WITH SCHEDULED MEDICATIONS. PT REQUESTING MEDICATION WHOLE WITH WATER, PT ABLE TO TAKE MEDICATIONS WITH WATER WITH NO CHOKING OR COUGHING. VSS. NO OTHER ACUTE CHANGES NOTED. WILL CONTINUE TO MONITOR UNTIL REPORT GIVEN TO ONCOMING RN.
--- NOTE | 2018-11-29 04:38 | NUR ---
Rn summary: Patient is alert to self and . He will follow commands. Pt took evening meds without difficulty and he turned to his left side and slept well. Pt has been incontinent x1 and used urinal x1. Pt needs frequent repositioning in bed. He gets parcopa q 3 hours orally. Pt is stable. Plan to discharge to [facility] today. Call light in reach, bed alarm is on.
[2018-11-29] MEDS ORDERED: ACET325 PO (13:09)
[2018-11-29] MEDS ORDERED: METO25ER PO (13:10)
--- NOTE | 2018-11-29 17:58 | NUR ---
LATE ENTRY FOR DC TODAY 1520- PT TRANSPORTED TO [facility]. INVOLVED, WILL MEET PT OVER AT THE FACILITY. SENT WITH BELONGINGS. REPORT GIVEN TO ANASTASIA AT 1430, MADE AWARE PT WOULD BE MEDICATED WITH 1500 DOSE SINIMET.
== END 2018-11-29 15:07 | disposition home or self-care (01) ==
LOC: ER 04:44 → MEDS 04:45 → ERHOLD 04:45 → MEDS 22:20
PROVIDERS: Internal Medicine; ADMIT Hospitalist
DX: G20 Parkinson's disease (principal); F02.81 Dementia in other diseases classified elsewhere, unspecified severity, with behavioral disturbance; I10 Essential (primary) hypertension; I42.9 Cardiomyopathy, unspecified; N40.0 Benign prostatic hyperplasia without lower urinary tract symptoms; E87.1 Hypo-osmolality and hyponatremia; M19.90 Unspecified osteoarthritis, unspecified site; H91.93 Unspecified hearing loss, bilateral; R40.0 Somnolence; R00.1 Bradycardia, unspecified; R00.0 Tachycardia, unspecified; R26.9 Unspecified abnormalities of gait and mobility; Z79.899 Other long term (current) drug therapy; Z79.02 Long term (current) use of antithrombotics/antiplatelets; Z85.71 Personal history of Hodgkin lymphoma; Z98.890 Other specified postprocedural states; Z90.49 Acquired absence of other specified parts of digestive tract
CPT/HCPCS: 36415; 80053; 80069; 81001; 83735; 84443; 85025; 96372; 97110; 97112; 97163; 97530; 99285-25; G0378; J1200; J1630; J2060; J7042; J7120

== ENCOUNTER 2018-12-15 08:48 | Emergency (ER) | payer MEDICARE, OTHER ==
[~2018-12-15] VITALS: Ht 185.4 cm; Wt 72.6 kg
[~2018-12-15 08:48] MED LIST changes: +ACET325 PO; +METO25ER PO
== END 2018-12-15 11:38 | disposition home or self-care (01) ==
LOC: ER 08:48
DX: R25.1 Tremor, unspecified (principal); I10 Essential (primary) hypertension; F03.90 Unspecified dementia, unspecified severity, without behavioral disturbance, psychotic disturbance, mood disturbance, and anxiety; Z79.899 Other long term (current) drug therapy
CPT/HCPCS: 99284

== ENCOUNTER 2019-08-28 00:30 | Emergency (ER) | payer MEDICARE, OTHER ==
[~2019-08-28] VITALS: Ht 182.9 cm
== END 2019-08-28 04:58 | disposition home or self-care (01) ==
LOC: ER 00:30
DX: M54.9 Dorsalgia, unspecified (principal); G20 Parkinson's disease; F02.80 Dementia in other diseases classified elsewhere, unspecified severity, without behavioral disturbance, psychotic disturbance, mood disturbance, and anxiety; I10 Essential (primary) hypertension; Z79.899 Other long term (current) drug therapy; W18.30XA Fall on same level, unspecified, initial encounter
CPT/HCPCS: 70450; 72125; 72128; 72131; 99284-25